=== PATIENT | female | born 1955 | race Caucasian/White ===

== ENCOUNTER 2019-12-15 10:32 | Outpatient (CLI) | payer BC, SELFPAY ==
--- NOTE | 2019-12-15 10:46 | XR_ITS ---
WS: [id number] Exam: XR DEXA axial skeleton* [id number] Date/Time of Exam: 12/15/2019 10:47 AM Reason For Exam: ASYMPTOMATIC POST MENOPAUSAL STATE DEXA BONE DENSITOMETRY [employer] The L1-L4 bone mineral density measures 1.001 g/cm2. This corresponds to a T score of -1.5 and Z scor e of 0.2. Left femoral neck bone mineral density measures 0.730 g/cm2. This corresponds to T score of -2.2 and Z score of -0.9. Right femoral neck bone mineral density measures 0.790 g/cm2. This corresponds to a T score of -1.7 a nd Z score of -0.4. Mean femoral neck bone mineral density measures 0.760 g/cm2. This corresponds to a T score of -2.0 an d Z score of -0.7 XR/XR DEXA axial skeleton* [id number] IMPRESSION: Bone mineral density lies in the osteopenic range. Refer to detailed summary.
== END 2019-12-15 10:33 | disposition home or self-care (01) ==
PROVIDERS: PCP Family Medicine; Visit Provider Family Medicine
DX: Z78.0 Asymptomatic menopausal state (principal)
CPT/HCPCS: 77080

== ENCOUNTER 2020-11-07 19:06 | Emergency (ER) | payer OTHER, SELFPAY ==
[2020-11-07] VITALS (8 sets, daily range): BP systolic 112–146; BP diastolic 64–78; PULSE 60–74; RESP 14–18; TEMP 36.2–36.7; O2SAT 98–100; BMI 25.4
--- NOTE | 2020-11-07 19:34 | XRR_ITS ---
PROCEDURE INFORMATION: Exam: XR Left Wrist Exam date and time: 11/07/2020 7:34 PM Age: 65 years old Clinical indication: Injury or trauma; Fall; Blunt trauma (contusions or hematomas); Wrist; Left TECHNIQUE: Imaging protocol: XR Left wrist. Views: 3 or more views. COMPARISON: No relevant prior studies available. FINDINGS: Bones/joints: Normal. Soft tissues: Normal. XR/XR wrist LT min 3V* [id number] IMPRESSION: Unremarkable
--- NOTE | 2020-11-07 19:43 | XRR_ITS ---
PROCEDURE INFORMATION: Exam: XR Left Elbow Exam date and time: 11/07/2020 7:43 PM Age: 65 years old Clinical indication: Injury or trauma; Fall; Blunt trauma (contusions or hematomas); Elbow; Left TECHNIQUE: Imaging protocol: XR Left elbow. Views: 1 or 2 views. COMPARISON: No relevant prior studies available. FINDINGS: Bones/joints: The olecranon is dislocated. The radial head is dislocated. No visible fracture. Soft tissues: Mild elbow swelling. XR/XR elbow LT 2V [id number] IMPRESSION: Dislocated radial head and olecranon. No fracture
--- NOTE | 2020-11-07 19:43 | W.ED.EXTPRO ---
HPI - Extremity Problem General: Chief complaint: Extremity Injury, Upper Stated complaint: fell Left arm pain Time Seen by Provider: 11/07/20 19:38 Source: patient Mode of arrival: ambulatory Limitations: no limitations History of Present Illness: HPI Narrative: 65-year-old female states that she had tripped and fell while running and landed on her outstretched arm left side. States she has had elbow pain since the event especially any range of motion. She has obvious deformity that elbow. States she has some slight wrist and forearm pain as well. Denies any shoulder pain. Denies hitting her head. She is not on any blood thinners. Associated symptoms: Deny chest pain, fever(s) or rash Review of Systems Const: Denies: fever(s), chills, body aches or change in appetite Eyes: Denies: blurry vision or eye discomfort ENMT: Denies: throat pain or dental pain Card: Denies: chest pain Resp: Denies: dyspnea GI: Denies: abdominal pain, nausea, vomiting or diarrhea : Denies: dysuria Musc: Reports: joint pain Skin/Breast: Denies: rash Neuro: Denies: headache(s) Psych: Denies: depression Deshaun/Lymph: Denies: easy bruising All/Imm: Denies: urticaria Physical Exam Const: COMMON NORMALS: no acute distress, patient oriented x3 and healthy appearing HENMT: COMMON NORMALS: normocephalic and atraumatic HEAD & SCALP: normocephalic and atraumatic Eye: COMMON NORMALS: Equal, round and reactive pupils present and EOMs intact bilaterally PUPIL: Yes Equal, round and reactive pupils present Neck/C-Spine: COMMON NORMALS: full ROM and supple Chest: COMMONS NORMALS: normal inspection of the chest and normal palpation of entire chest wall Resp: COMMON NORMALS: normal respiratory effort, No retractions, No use of accessory muscles and clear to auscultation bilaterally AUSCULTATION: clear to auscultation bilaterally Cardio: COMMON NORMALS: regular rate, regular rhythm and No murmurs present (Cardio) RATE: regular rate RHYTHM: regular rhythm GI: COMMON NORMALS: Normal to inspection, nondistended, normoactive bowel sounds present, Soft to palpation, non-tender and no masses PALPATION: Yes Soft to palpation Extremity: NARRATIVE EXTREMITY EXAM: Obvious deformity to left elbow distal pulses and sensation intact Neuro: COMMON NORMALS: patient oriented x3, moves all extremities and no focal motor deficits Psych: COMMON NORMALS: mental status grossly normal, Normal thought process present and cooperative THOUGHT PROCESS: Normal thought process present Skin: COMMON NORMALS: no rashes or lesions noted and no wounds GENERAL SKIN EXAM: no rashes or lesions noted Procedures Orthopedic Joint Reduction Joint #1: Time Out Performed: Yes Side: left Joint Reduction Location: elbow Analgesia: procedural sedation Shoulder Technique Used (if applicable): traction/counter-traction Post-reduction neuro exam: intact Post-reduction vascular: intact Post Reduction X-Ray Obtained: Yes Post Reduction X-Ray Results: reduced Splint Applied: Yes Patient Tolerated Procedure: well Procedural Sedation Indication: fracture/dislocation reduction ASA Class: I Time of Last PO Intake: 16:35 Preparation: ekg monitor applied and pulse oximeter IV Propofol dose (mg): 50 Patient Tolerated Procedure: well Complications: none Interventions: oxygen applied Course Vital Signs: Vital signs: Vital Signs Temperature 98 F 11/07/20 20:24 Pulse Rate 62 11/07/20 20:35 Respiratory Rate 16 11/07/20 20:35 Blood Pressure 112/65 11/07/20 20:35 Pulse Oximetry 99 11/07/20 20:35 MDM - Extremity (Nontraumatic) MDM Narrative: Medical decision making narrative: Patient presents here with an elbow dislocation from a fall. Patient's elbow was reduced in the ER she has good sensation and distal pulses after reduction. Patient placed in a splint and is to follow-up with orthopedics. She had no other injuries from her fall. Imaging Data^: xr L elbow: Attestation: I personally reviewed and interpreted this imaging study as follows: My impression: dislocation of elbow no fx Discharge Plan Discharge Patient Disposition: Home Clinical Impression: Dislocated elbow Qualifiers: Encounter type: initial encounter Laterality: left Qualified Code(s): S53.105A - Unspecified dislocation of left ulnohumeral joint, initial encounter Condition: Stable Discharge Orders: Discharge ED (Routine); Ordered 11/07/20 Ordered By: Cynthia Durbin Referrals: Coy Gates DO [Physician] - 1-3 days Discharge Diet: Advance as tolerated Discharge Activity: Resume usual activity Patient Instructions: Elbow Dislocation (ED) Coding Level of Care Code ED Electrical Products Engineer for g Fwd Exam Comprehensive
[2020-11-07] MEDS: HYDROcodone-acetaminophen 5-325 mg Tablet 1 TAB PO (19:47)
[2020-11-07] MEDS: ondansetron 2 mg/ML SDV 2 mL 4 MG IVP (20:17)
[2020-11-07] MEDS: morphine 4 mg/mL SDV 1 mL IVP (20:17)
--- NOTE | 2020-11-07 20:24 | XRR_ITS ---
PROCEDURE INFORMATION: Exam: XR Left Elbow Exam date and time: 11/07/2020 8:24 PM Age: 65 years old Clinical indication: Injury or trauma; Fall; Blunt trauma (contusions or hematomas); Elbow; Left; Additional info: Post reduction TECHNIQUE: Imaging protocol: XR Left elbow. Views: 1 or 2 views. COMPARISON: CR XR elbow LT 2V [id number] 11/07/2020 7:46 PM FINDINGS: Bones/joints: Since earlier today the dislocated radial head and olecranon have been reduced. No visible fracture. Soft tissues: Normal. Other findings: No visible effusion. XR/XR elbow LT 2V [id number] IMPRESSION: Reduced dislocations of the olecranon and radial head
[2020-11-07] MEDS: propofol 10 mg/mL SDV 20 mL 100 MG IVP (20:32)
--- NOTE | 2020-11-08 10:06 | DCPLANNER ---
grocery manager had message to schedule a follow up appointment for patient with ortho. grocery manager called the ortho clinic, spoke with Tanya, gave clinic patients information. grocery manager was told that patients information would be printed and reviewed. Clinic will call patient with appointment information.
--- NOTE | 2020-11-09 10:39 | DCPLANNER ---
Patient has a follow up appointment scheduled for Thursday, November 16, 2020 at 8:[address] Smyth at [facility]. Clinic will call patient with appointment information.
--- NOTE | 2020-12-27 14:16 | DCPLANNER ---
Patient had an appointment scheduled for 11.16.[address] Smyth - patient did attend appointment.
== END 2020-11-07 21:01 | disposition home or self-care (01) ==
PROVIDERS: Emergency Provider Emergency Medicine
DX: S53.105A Unspecified dislocation of left ulnohumeral joint, initial encounter (principal); W01.0XXA Fall on same level from slipping, tripping and stumbling without subsequent striking against object, initial encounter
CPT/HCPCS: 24600; 73070; 73110; 96374; 96375; 99284; J2270; J2405; J2704

== ENCOUNTER → 2020-11-16 08:34 | Outpatient (BNVA) | payer OTHER, SELFPAY | PROVIDERS: Referring Provider Emergency Medicine; Visit Provider Orthopaedic Surgery | DX: S53.105A Unspecified dislocation of left ulnohumeral joint, initial encounter (principal); X58.XXXA Exposure to other specified factors, initial encounter | CPT/HCPCS: 73080 ==

== ENCOUNTER 2020-12-04 06:00 | Outpatient (RCR) | payer OTHER, SELFPAY | END 2020-12-16 23:59 | disposition home or self-care (01) | LOC: SOT 06:00 | PROVIDERS: Referring Provider Orthopaedic Surgery; Visit Provider Orthopaedic Surgery | DX: S59.902D Unspecified injury of left elbow, subsequent encounter (principal); X58.XXXD Exposure to other specified factors, subsequent encounter | CPT/HCPCS: 97110; 97112; 97140; 97165 ==

== ENCOUNTER 2020-12-17 06:00 | Outpatient (RCR) | payer OTHER, SELFPAY | END 2021-01-15 23:59 | disposition home or self-care (01) | LOC: SOT 06:00 | PROVIDERS: Referring Provider Orthopaedic Surgery; Visit Provider Orthopaedic Surgery | DX: S59.902D Unspecified injury of left elbow, subsequent encounter (principal) | CPT/HCPCS: 97110; 97140; 97535 ==

== ENCOUNTER 2022-12-12 13:53 | Outpatient (CLI) | payer OTHER, SELFPAY ==
--- NOTE | 2022-12-12 13:57 | XR_ITS ---
WS: [id number] SCREENING DEXA SCAN [facility] CLINICAL INFORMATION: OSTEOPOROSIS COMPARISON: 12/15/2019 FINDINGS: The L1-L4 bone mineral density measures 1.06. This corresponds to a T score score of -0.9 and Z score of 0.9. Left femoral neck bone mineral density measures 0.716 g/cm2. This corresponds to a T score of -2.3 an d Z score of -0.8. Right femoral neck bone mineral density measures 0.777 g/cm2. This corresponds to a T score -1.8of an d Z score of -0.3. Mean femoral neck bone mineral density measures 0.747 g/cm2. This corresponds to a T score of -2.1 an d Z score of -0.6. IMPRESSION: Normal bone mineralization lumbar spine approaching osteopenia. Osteopenia femoral necks approaching osteoporosis. Patient's FRAX calculated 10 year probability for major osteoporotic fracture is 12.4% and osteoporot ic hip fracture is 2.3%. Bone mineral density lumbar spine increased 7.6% Bone mineral density in the femoral necks decreased -1.7%
== END 2022-12-12 13:54 | disposition home or self-care (01) ==
LOC: RAD 13:53
PROVIDERS: Visit Provider Nurse Practitioner Family
DX: Z13.820 Encounter for screening for osteoporosis (principal); M81.0 Age-related osteoporosis without current pathological fracture; M85.852 Other specified disorders of bone density and structure, left thigh; M85.851 Other specified disorders of bone density and structure, right thigh; Z90.710 Acquired absence of both cervix and uterus
CPT/HCPCS: 77080